=== PATIENT | male | born 1970 | race Caucasian/White ===

== ENCOUNTER 2021-12-02 15:47 | Emergency (ER) | payer OTHER ==
[~2021-12-02] VITALS: Ht 175.3 cm; Wt 72.7 kg
[2021-12-02] MEDS ORDERED: IV NORMAL SALINE 1000ML BAG 1,000 ML IV ONE (16:15)
--- NOTE | 2021-12-02 16:24 | PHYS DOC ---
Past Medical History Past Surgical History: No Surgical History General Adult EDM: Chief Complaint: SYNCOPE HPI: HPI: Patient is a 50 year old male who presents with just got a meniscus tear repair at [place] this morning and was discharged. He is on his way back home and had a syncopal episode in the car while sitting with a seatbelt on. states that he became diaphoretic and very nauseated and passed out. Patient's states that she called the doctor and they stated to go to the ER. Patient states that he vomited in our parking lot when they got here. He states he now feels fine. He denies dizziness, chest pain, headache, shortness of breath, fever, denies neck or back pain, abdominal pain, nausea at this time, diarrhea, back pain, severe postoperative pain. Review of Systems: Review of Systems: Constitutional: Denies fever or chills. [] Eyes: Denies change in visual acuity. [] HENT: Denies nasal congestion or sore throat. [] Respiratory: Denies cough or shortness of breath. [] Cardiovascular: Denies chest pain or edema. [] GI: Denies abdominal pain, + 1 episode of nausea, + 1 episode of vomiting, denies bloody stools or diarrhea. [] : Denies dysuria. [] Musculoskeletal: Denies back pain or joint pain. [] Integument: Denies rash. [] Neurologic: Denies headache, focal weakness or sensory changes. + Syncope [] Endocrine: Denies polyuria or polydipsia. [] Lymphatic: Denies swollen glands. [] Psychiatric: Denies depression or anxiety. [] Heart Score: C/O Chest Pain: No HEART Score for Chest Pain: HEART Score for Chest Pain Response (Comments) Value History Slighlty/Non-Suspicious 0 ECG Normal 0 Age >45 - < 65 1 Risk Factors No Risk Factors 0 Troponin < Normal Limit 0 Total 1 Risk Factors: Risk Factors: DM, Current or recent (<one month) smoker, HTN, HLP, family history of CAD, obesity. Risk Scores: Score 0 - 3: 2.5% MACE over next 6 weeks - Discharge Home Score 4 - 6: 20.3% MACE over next 6 weeks - Admit for Clinical Observation Score 7 - 10: 72.7% MACE over next 6 weeks - Early Invasive Strategies Current Medications: Current Medications Medications (Trade) Dose Ordered Sig/Christo Start Time Stop Time Status Last Admin Dose Admin Sodium Chloride 1,000 ml @ 1,000 mls/hr 1X ONCE 12/02/21 16:15 12/02/21 17:14 UNV Allergies: Allergies: Allergies Coded Allergies Type Severity Reaction Last Updated Verified No Known Drug Allergies 12/02/21 No Physical Exam: PE: Constitutional: Well developed, well nourished, no acute distress, non-toxic appearance. [] HENT: Normocephalic, atraumatic, bilateral external ears normal, oropharynx moist, no oral exudates, nose normal. [] Eyes: PERRLA, EOMI, conjunctiva normal, no discharge. [] Neck: Normal range of motion, no tenderness, supple, no stridor. [] Cardiovascular:Heart rate regular rhythm, no murmur [] Lungs & Thorax: Bilateral breath sounds clear to auscultation [] Abdomen: Bowel sounds normal, soft, no tenderness, no masses, no pulsatile masses. [] Skin: Warm, dry, no erythema, no rash. [] Back: No tenderness, no CVA tenderness. [] Extremities: No tenderness, no cyanosis, no clubbing, ROM intact, no edema. [] Neurologic: Alert and oriented X 3, normal motor function, normal sensory function, no focal deficits noted. [] Psychologic: Affect normal, judgement normal, mood normal. [] Normal physical exam Current Patient Data: Vital Signs: Vital Signs Date Time Temp Pulse Resp B/P (MAP) Pulse Ox O2 Delivery O2 Flow Rate FiO2 12/02/21 15:55 97.8 66 16 130/76 (94) Room Air 97.8 EKG: EK and read by Dr. Garcia is a sinus rhythm and no STEMI Radiology/Procedures: Radiology/Procedures: [] Impression: [facility] [address] [place], [place] [id number] IMAGING REPORT Signed PATIENT: SANTOS BONILLA ACCOUNT: [id number] : 1970 LOCATION: ER AGE: 50 SEX: M EXAM STATUS: PRE ER ORD. PHYSICIAN: LORENE RANKIN APRN REASON: SYNCOPE PROCEDURE: CT HEAD WO CONTRAST Exam: CT head without contrast Date: June 25, 2017 Indication: Syncope. Comparisons: None Technique: CT of the head without intravenous contrast performed using contiguous axial imaging from the skull base to the vertex. Soft tissue and bone window algorithms were reviewed. The CT scan was acquired using radiation reduction techniques, such automated exposure control, adjustment of the mA and/or kV according to the patient's size and use of iterative reconstruction techniques. Findings: The ventricles, cortical sulci and cisterns are symmetric and appropriate in size. Neither mass, midline shift, extra-axial fluid collections, intracranial hemorrhage, nor acute or subacute ischemic changes are seen. The calvarium is intact. The visualized skull base is normal in appearance. The visualized paranasal sinuses and mastoid air cells are clear. The orbits and their contents are symmetric. Review of bone windows reveals no suspicious osseous abnormalities. Impression: No evidence of acute intracranial process. Electronically signed by: Amberly Miles DO (12/02/2021 4:37 PM) [id number] DICTATED and SIGNED BY: AMBERLY MILES DO DATE: 12/02/21 1636 Course & Med Decision Making: Course & Med Decision Making Pertinent Labs and Imaging studies reviewed. (See chart for details) See HPI. Alert and oriented x4. Ambulatory steady gait. Speaks in full clear sentences. Skin pink warm and dry. Vital signs within normal limits. Afebrile. Lungs are clear to auscultation all lobes. CT head shows no acute findings. Orthostatics are normal. He is tolerating p.o. urinalysis is normal. Vital signs with normal. Patient states he still feels great. Patient discharged home. [] Xavier Disclaimer: Xavier Disclaimer: This electronic medical record was generated, in whole or in part, using a voice recognition dictation system. Departure Departure Impression: Primary Impression: Syncope Qualified Codes: R55 - Syncope and collapse Disposition: HOME / SELF CARE / HOMELESS Condition: STABLE Patient Instructions: Syncope, Vagal Nerve Stimulation Additional Instructions: Follow-up with your primary care doctor or surgeon as directed or sooner if needed. Drink plenty of fluids to stay hydrated. Take medications as prescribed. If you have another syncopal episode or start having shortness of breath or chest pain return to the emergency room. LORENE RANKIN APRN Dec 02, 2021 16:24
--- NOTE | 2021-12-02 16:39 | RAD ---
Exam: CT head without contrast Date: June 25, 2017 Indication: Syncope. Comparisons: None Technique: CT of the head without intravenous contrast performed using contiguous axial imaging from the skull base to the vertex. Soft tissue and bone window algorithms were reviewed. The CT scan was acquired using radiation reduction techniques, such automated exposure control, adjustment of the mA and/or kV according to the patient's size and use of iterative reconstruction techniques. Findings: The ventricles, cortical sulci and cisterns are symmetric and appropriate in size. Neither mass, midline shift, extra-axial fluid collections, intracranial hemorrhage, nor acute or subacute is chemic changes are seen. The calvarium is intact. The visualized skull base is normal in appearance. The visualized paranasal sinuses and mastoid air cells are clear. The orbits and their contents are s ymmetric. Review of bone windows reveals no suspicious osseous abnormalities. Impression: No evidence of acute intracranial process. Electronically signed by: Lloyd Miles DO (12/02/2021 4:37 PM) [id number]
[2021-12-02 16:44] LABS: BASO % 0 % (0-3); EOS % 0 % (0-3); HEMATOCRIT 39.4 % (39.0-53.0); HEMOGLOBIN 13.7 g/dL (13.0-17.5); LYMPH # 0.6 x10^3/uL (1.0-4.8); LYMPH % 6 % (24-48); MEAN CORPUSCULAR HEMOGLOBIN 30 pg (25-35); MEAN CORPUSCULAR HGB CONC 35 g/dL (31-37); MEAN CORPUSCULAR VOLUME 87 fL (79-100); MONO # 0.1 x10^3/uL (0.0-1.1); MONO % 1 % (0-9); NEUT # 10.6 x10^3/uL (1.8-7.7); NEUT % 93 % (31-73); PLATELET COUNT 312 x10^3/uL (140-400); RED BLOOD COUNT 4.54 x10^6/uL (4.30-5.70); RED CELL DISTRIBUTION WIDTH 13.1 % (11.5-14.5); WHITE BLOOD COUNT 11.4 x10^3/uL (4.0-11.0)
[2021-12-02 16:46] LABS: CALCIUM 9.3 mg/dL (8.5-10.1); CREATININE 1.1 mg/dL (0.7-1.3); GFR 71.4; POTASSIUM 4.1 mmol/L (3.5-5.1)
[2021-12-02 17:30] VITALS: BP 124/81
[2021-12-02 18:12] LABS: BARBITURATES NEG (NEG); BENZODIAZEPINES POS (NEG); CANNABINOIDS NEG (NEG); COCAINE NEG (NEG); METHADONE NEG (NEG); OPIATES NEG (NEG); PHENCYCLIDINE NEG (NEG)
[2021-12-02 18:14] LABS: AMPHETAMINE/METHAMPHETAMINE NEG (NEG)
[2021-12-02 18:17] LABS: HYALINE CASTS, URINE FEW /HPF
[2021-12-02 18:18] LABS: AMORPHOUS SEDIMENT,UR PRESENT /HPF; BACTERIA,URINE 0 /HPF (0-FEW); RBC,URINE 0 /HPF (0-2); WBC,URINE 0 /HPF (0-4)
--- NOTE | 2021-12-03 17:39 | EKG ---
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
== END 2021-12-02 18:37 | disposition home or self-care (01) ==
LOC: ER 15:47
DX: R55 Syncope and collapse (principal); R11.2 Nausea with vomiting, unspecified
CPT/HCPCS: 36415; 70450; 80048; 80307; 81001; 84484; 85025; 93005; 96360; 99285; J7030